=== PATIENT | female | born 1950 | race Two or more races ===

== ENCOUNTER 2020-09-03 07:12 | Outpatient (REF) | payer MEDICARE, SELFPAY ==
[2020-09-03 08:50] LABS: Alanine Aminotransferase 29 U/L (0-31); Albumin Level 4.2 g/dL (3.5-5.0); Alkaline Phosphatase 94 U/L (39-117); Anion Gap 12 (12-20); Aspartate Amino Transferase 22 U/L (5-31); Bilirubin Total 0.7 mg/dL (0.0-1.0); Blood Urea Nitrogen 12 mg/dL (9-16); Calcium 9.1 mg/dL (8.4-10.2); Carbon Dioxide 27 mmol/L (22-29); Chloride 105 mmol/L (96-108); Cholesterol 162 mg/dL; Estimated Glomerular Filt Rate > 60; Glucose Fasting 95 mg/dL (60-99); HDL Cholesterol 47 mg/dL; LDL Cholesterol Calculated 99 mg/dl; Potassium 4.3 mmol/l (3.3-5.1); Sodium 140 mmol/L (135-145); Triglycerides 81 mg/dL
== END 2020-09-03 07:13 | disposition home or self-care (01) ==
LOC: HO.LAB 07:12
PROVIDERS: PCP Internal Medicine; Visit Provider Internal Medicine
DX: E78.00 Pure hypercholesterolemia, unspecified (principal)
CPT/HCPCS: 80053; 80061

== ENCOUNTER 2020-10-22 16:31 | Outpatient (REF) | payer MEDICARE, SELFPAY ==
--- NOTE | 2020-10-22 16:36 | MM_ITS ---
EXAMINATION: MM SCREENING DIGITAL BREAST TOMOSYNTHESIS, BILATERAL CLINICAL INFORMATION: Screening. Asymptomatic. The lifetime risk of breast cancer based on the Tyrer-Cuzick Model is 4%. COMPARISON: Mammography: 08/09/2019, 07/27/2018, 07/05/2017 TECHNIQUE: Digital breast tomosynthesis is performed in both the craniocaudal and mediolateral oblique views along with computer-aided detection (CAD). Synthesized 2D images are generated from the tomosynthesis. FINDINGS: The breasts are almost entirely fatty (ACR BI-RADS breast composition Category a). Background stromal densities are stable. There is no developing density or interval mass or architectural abnormality. The axilla and skin contours are unremarkable. No significant changes. MM/MM tomosynthesis screening BI IMPRESSION: No mammographic evidence of malignancy. ASSESSMENT: BI-RADS 1: Negative RECOMMENDATION: Routine annual mammography screening. This patient's information was entered into a reminder system with a target due date for their next mammogram.
== END 2020-10-22 16:32 | disposition home or self-care (01) ==
LOC: HO.MAMMO 16:31
PROVIDERS: PCP Internal Medicine; Visit Provider Internal Medicine
DX: Z12.31 Encounter for screening mammogram for malignant neoplasm of breast (principal)
CPT/HCPCS: 77063; 77067

== ENCOUNTER 2021-09-11 11:39 | Outpatient (REF) | payer MEDICARE, SELFPAY ==
[2021-09-11 13:54] LABS: Influenza A PCR NEGATIVE (Negative); Influenza B PCR NEGATIVE (Negative); Resp Syncy Virus RNA Qual PCR NEGATIVE (Negative); SARS COV2 PCR INHOUSE NEGATIVE (Negative)
== END 2021-09-11 11:40 | disposition home or self-care (01) ==
LOC: HO.LNP 11:39
PROVIDERS: Visit Provider Internal Medicine
DX: Z20.822 Contact with and (suspected) exposure to COVID-19 (principal); R43.9 Unspecified disturbances of smell and taste
CPT/HCPCS: 0241U

== ENCOUNTER 2021-11-02 08:26 | Outpatient (REF) | payer MEDICARE, SELFPAY ==
[2021-11-02 09:45] LABS: Binax Internal Control QC Valid; Binax Now Covid-19 Ag Negative (Negative)
== END 2021-11-02 08:27 | disposition home or self-care (01) ==
LOC: HO.LAB 08:26
PROVIDERS: Visit Provider Internal Medicine
DX: Z20.822 Contact with and (suspected) exposure to COVID-19 (principal)
CPT/HCPCS: C9803

== ENCOUNTER 2021-11-20 10:56 | Outpatient (REF) | payer MEDICARE, SELFPAY ==
--- NOTE | ~2021-11-20 | MM_ITS ---
EXAMINATION: MM SCREENING DIGITAL BREAST TOMOSYNTHESIS, BILATERAL CLINICAL INFORMATION: Screening. Asymptomatic. The lifetime risk of breast cancer based on the Tyrer-Cuzick Model is 4%. COMPARISON: Mammography: 10/22/2020, 08/09/2019, 07/27/2018 TECHNIQUE: Digital breast tomosynthesis is performed in both the craniocaudal and mediolateral oblique views along with computer-aided detection (CAD). Synthesized 2D images are generated from the tomosynthesis. FINDINGS: The breasts are almost entirely fatty (ACR BI-RADS breast composition Category a). There are no significant masses, abnormal calcifications, or other abnormalities. Background stromal markings are similar to prior studies. No developing density or interval architectural abnormality. No significant changes. MM/MM tomosynthesis screening BI IMPRESSION: No mammographic evidence of malignancy. ASSESSMENT: BI-RADS 1: Negative RECOMMENDATION: Routine annual mammography screening. This patient's information was entered into a reminder system with a target due date for their next mammogram.
== END 2021-11-20 10:57 | disposition home or self-care (01) ==
LOC: HO.MAMMO 10:56
PROVIDERS: PCP Internal Medicine; Visit Provider Internal Medicine
DX: Z12.31 Encounter for screening mammogram for malignant neoplasm of breast (principal)
CPT/HCPCS: 77063; 77067

== ENCOUNTER 2022-01-29 09:35 | Outpatient (REF) | payer MEDICARE, SELFPAY ==
[2022-01-29 10:10] LABS: COVID-19 Test Negative (Negative); IDNOW Serial# 08D9AD1C
== END 2022-01-29 09:36 | disposition home or self-care (01) ==
LOC: HO.LAB 09:35
PROVIDERS: Visit Provider Internal Medicine
DX: Z20.822 Contact with and (suspected) exposure to COVID-19 (principal)
CPT/HCPCS: 87635; C9803

== ENCOUNTER 2022-11-24 12:41 | Outpatient (REF) | payer MEDICARE, SELFPAY ==
--- NOTE | ~2022-11-24 | XR_ITS ---
EXAMINATION: XR KNEE, LEFT CLINICAL INFORMATION: Pain in left knee. COMPARISON: None TECHNIQUE: Three views of the left knee. FINDINGS: Bones and soft tissues are normal. No fracture or joint effusion. Alignment is anatomic. Joint spaces are well maintained. No abnormal soft tissue calcification. XR/XR knee LT 3V IMPRESSION: Normal left knee.
== END 2022-11-24 12:42 | disposition home or self-care (01) ==
LOC: HO.XRAY 12:41
PROVIDERS: PCP Internal Medicine; Visit Provider Internal Medicine
DX: M25.562 Pain in left knee (principal)
CPT/HCPCS: 73562

== ENCOUNTER 2022-11-26 10:26 | Outpatient (REF) | payer MEDICARE, SELFPAY ==
--- NOTE | ~2022-11-26 | MM_ITS ---
EXAMINATION: MM SCREENING DIGITAL BREAST TOMOSYNTHESIS, BILATERAL CLINICAL INFORMATION: Screening. Asymptomatic. The lifetime risk of breast cancer based on the Tyrer-Cuzick Model is 3%. COMPARISON: Mammography: 11/20/2021, 10/22/2020, 08/09/2019 TECHNIQUE: Digital breast tomosynthesis is performed in both the craniocaudal and mediolateral oblique views along with computer-aided detection (CAD). Synthesized 2D images are generated from the tomosynthesis. FINDINGS: The breasts are almost entirely fatty (ACR BI-RADS breast composition Category a). Background stromal markings and fibroglandular densities are similar to prior studies. No developing density. No architectural abnormality. There are no significant masses, abnormal calcifications, or other abnormalities. There are scattered vascular calcifications. The axilla and skin contours are unremarkable. MM/MM tomosynthesis screening BI IMPRESSION: No mammographic evidence of malignancy. ASSESSMENT: BI-RADS 1: Negative RECOMMENDATION: Routine annual mammography screening. This patient's information was entered into a reminder system with a target due date for their next mammogram.
== END 2022-11-26 10:27 | disposition home or self-care (01) ==
LOC: HO.MAMMO 10:26
PROVIDERS: PCP Internal Medicine; Visit Provider Internal Medicine
DX: Z12.31 Encounter for screening mammogram for malignant neoplasm of breast (principal)
CPT/HCPCS: 77063; 77067

== ENCOUNTER 2023-03-10 06:11 | Outpatient (REF) | payer MEDICARE, SELFPAY ==
--- NOTE | ~2023-03-10 | XR_ITS ---
EXAMINATION: XR KNEE AP STANDING CLINICAL INFORMATION: Right knee pain COMPARISON: None available. TECHNIQUE: AP bilateral standing view of the knees was obtained. FINDINGS: Bones and soft tissues are normal. No fracture or joint effusion. Alignment is anatomic. Joint spaces are well maintained. No abnormal soft tissue calcification. XR/XR knee standing BI IMPRESSION: Normal knees.
== END 2023-03-10 06:12 | disposition home or self-care (01) ==
LOC: HO.HOSX 06:11
PROVIDERS: Visit Provider Physician Assistant
DX: M17.12 Unilateral primary osteoarthritis, left knee (principal); M25.561 Pain in right knee
CPT/HCPCS: 73565; 99202

== ENCOUNTER 2023-05-24 12:03 | Outpatient (AMB) | payer MEDICARE, SELFPAY ==
--- NOTE | 2023-05-24 13:14 | AM.OFFWIN_ITS ---
Intake Vital Signs 05/24/23 13:18 Weight 151 lb BP 112/66 Blood Pressure Location Lt brachial Position Sitting Pulse 66 Pulse Source Pulse Oximeter Pulse Oximetry (%) 96 Oxygen Delivery Method Room Air Intake Visit Reasons: EP, watery left eye ([phone]) Intake Note: Patient here for left eye watery, she states this has been going on for about 6 months. states the eye is constanstly tearing. Patient Tobacco Use Status: Never used Tobacco Allergies No Known Allergies Allergy (Verified 05/24/23 13:53) Medication List - Last Reconciled 05/24/23 by Ketan Rolle MD erythromycin 0.5 inches ophthalmic (eye) TID Do you need a note to return to daycare/school/sports/work: No HPI EP, watery left eye ([phone]) HPI Details 72-year-old female presents to the office for a sick visit. is translating for her. Patient reports that she has a teary left eye for the past few days. She has difficulty opening the eye and this morning there was some discharge. [facility] Medical History Pure hypercholesterolemia Surgical History History of hysterectomy Family History Father Diabetes Mother Alzheimers disease Maternal Aunt Breast cancer Brother Liver cancer Social History (Updated 03/10/23 @ 10:07 by Jossie Conner Ethan) Housing: Apartment Alcohol intake: never Patient Tobacco Use Status: Never used Tobacco e-Cigarette/Vaping Use: Never Used Second Hand Smoke Exposure: No service: No Current occupational status: unemployed Current occupation: left hand Cognitive needs: No Hearing needs: No Vision needs: No Physical Exam Vital Signs: Last Vital Signs Pulse 66 05/24/23 13:18 BP 112/66 05/24/23 13:18 Pulse Ox 96 05/24/23 13:18 Oxygen Delivery Method Room Air 05/24/23 13:18 HEENT Other: Left eye: Mild conjunctival congestion. Corneas clear. Anterior chambers clear. No digital tenderness. Assessment & Plan Assessment & Plan (1) Conjunctivitis, left eye: Code(s): H10.9 - Unspecified conjunctivitis Plan: Erythromycin ointment called in.. If symptoms do not improve to follow-up here. Medications: New erythromycin 0.5 inches ophthalmic (eye) TID 1 g 0RF Coding Level of Care Code Est Pt Level 3 (03239) Diagnoses Conjunctivitis, left eye H10.9
[2023-05-24 13:18] VITALS: BP 112/66; PULSE 66; O2SAT 96
== END 2023-05-24 14:09 | disposition home or self-care (01) ==
PROVIDERS: PCP Internal Medicine; Visit Provider Internal Medicine
DX: H10.9 Unspecified conjunctivitis (principal)
CPT/HCPCS: 99213

== ENCOUNTER 2023-12-02 10:04 | Outpatient (REF) | payer OTHER, SELFPAY | END 2023-12-02 10:05 | disposition home or self-care (01) | LOC: HO.MAMMO 10:04 | PROVIDERS: PCP Internal Medicine; Visit Provider Internal Medicine | DX: Z12.31 Encounter for screening mammogram for malignant neoplasm of breast (principal) | CPT/HCPCS: 77063; 77067 ==

== ENCOUNTER → 2023-12-02 10:30 | Outpatient (BNV) | payer OTHER, SELFPAY | PROVIDERS: PCP Internal Medicine; Visit Provider Radiology Diagnostic Radiology | DX: Z12.31 Encounter for screening mammogram for malignant neoplasm of breast (principal) | CPT/HCPCS: 77063; 77067 ==

== ENCOUNTER 2024-01-18 07:50 | Outpatient (REF) | payer OTHER, SELFPAY ==
[2024-01-18 10:02] LABS: Alanine Aminotransferase 16 U/L (0-31); Alkaline Phosphatase 61 U/L (39-117); Anion Gap 11 (12-20); Aspartate Amino Transferase 18 U/L (5-31); Bilirubin Total 0.5 mg/dL (0.0-1.0); Blood Urea Nitrogen 11 mg/dL (9-16); Calcium 9.7 mg/dL (8.4-10.2); Carbon Dioxide 27 mmol/L (22-29); Chloride 108 mmol/L (96-108); Cholesterol 223 mg/dL (<200); Estimated Glomerular Filt Rate > 60; Glucose Fasting 97 mg/dL (60-99); HDL Cholesterol 48 mg/dL (>40); LDL Cholesterol Calculated 153 mg/dL (<100); Potassium 4.4 mmol/L (3.3-5.1); Sodium 142 mmol/L (135-145); Total Protein 7.2 g/dL (6.5-8.0); Triglycerides 110 mg/dL (<150)
== END 2024-01-18 07:51 | disposition home or self-care (01) ==
LOC: HO.LAB 07:50
PROVIDERS: Visit Provider Internal Medicine
DX: M17.12 Unilateral primary osteoarthritis, left knee (principal); E78.5 Hyperlipidemia, unspecified
CPT/HCPCS: 36415; 80053; 80061

== ENCOUNTER 2024-02-02 16:14 | Outpatient (AMB) | payer OTHER, SELFPAY ==
--- NOTE | 2024-02-02 16:15 | A.OFFPC_ITS ---
Vital Signs 02/02/24 16:16 Height 5 ft 1 in Weight 150 lb BMI 28.3 BP 114/72 Blood Pressure Location Lt brachial Position Sitting Intake Visit Reasons: watery/blurry left eye Intake Note: patient here for left eye blurry vision, watery eye Bodywork Therapist Required: No Accompanied by: Self / Same As Patient Allergies No Known Allergies Allergy (Verified 02/02/24 16:44) Medication List - Last Reconciled 02/02/24 by Marti Hernandez MD rosuvastatin 10 mg PO DAILY 90 days Tobacco use date assessed: 02/02/24 Fall risk assessment: No Falls in past year Last assessed Fall Risk: 02/02/24 Dental Screening Dental Screen Date: 02/02/24 Did you have a dental visit in the last 12 months?: No Did you have a dental problem in the last 6 months where you did not have access to dental care?: No Was dental information given to patient?: Patient declined HPI HPI Comments History of Present Illness Details This is a 73-year-old female with pure hypercholesterolemia that comes complaining of left eye being red and watery that started few days ago. She also has a pterygium that is growing and I will refer her to Ophthalmology. Cholesterol was elevated and she admits that she started being compliant with me dication this month. [facility] Medical History (Updated 02/03/24 @ 14:42 by Marti Hernandez MD) Pure hypercholesterolemia Surgical History History of hysterectomy Family History Father Diabetes Mother Alzheimers disease Maternal Aunt Breast cancer Brother Liver cancer Social History Housing: Apartment Alcohol intake: never Patient Tobacco Use Status: Never used Tobacco e-Cigarette/Vaping Use: Never Used Second Hand Smoke Exposure: No service: No Current occupational status: unemployed Current occupation: left hand Cognitive needs: No Hearing needs: No Vision needs: No Questionnaire PHQ-9 Over the last 2 weeks, how often have you been bothered by any of the following problems? 1. Little interest or pleasure in doing things: not at all 2. Feeling down, depressed, or hopeless: not at all 3. Trouble falling or staying asleep, or sleeping too much: not at all 4. Feeling tired or having little energy: not at all 5. Poor appetite or overeating: not at all 6. Feeling bad about yourself - or that you are a failure or have let yourself or your family down: not at all 7. Trouble concentrating on things, such as reading the newspaper or watching television: not at all 8. Moving or speaking so slowly that other people could have noticed. Or the opposite - being so fidgety or restless that you have been moving around a lot more than usual: not at all 9. Thoughts that you would be better off or of hurting yourself in some way: not at all Total score: 0 Depression Screening Interpretation: Negative Depression Screening Done: Yes 27907 - PHQ-9 Billing: Yes Source: Developed by Drs. Brice Thakkar, Jayshree Manuel, Hema Greenberg and colleagues, with an educational dexter from [employer]. Thrive Questionnaire Date Thrive assessed: 02/02/24 I am a: Patient What is your living situation today?: I have a steady place to live Within the past 12 months, did the food you bought not last and you didn't have the money to get more?: Never true Within the past 12 months, did you worry whether your food would run out before you got money to buy more?: Never true Do you have trouble paying for medicines?: No Do you have trouble getting transportation to medical appointments?: No Do you have trouble paying your heating and electricity bill?: No Do you have trouble taking care of your child, family member or friend?: No Do you have trouble with day-to-day activities such as bathing, preparing meals, shopping, managing finances, etc.?: No Are you currently unemployed and looking for a job?: No Are you interested in more education?: No Please select the resources that you would like help with: None Currently or been in a relationship where the following occur: no concerns reported THRIVE Score: 0 AUDIT C Alcohol Use Questionnaire (AUDIT-C) 1. How often do you have a drink containing alcohol?: Never Total Score: 0 EVERETTE-7 AMB Questionnaire EVERETTE-7 Date EVERETTE - 7 assessed: 02/02/24 Feeling nervous, anxious, or on edge: 0 = Not at all Not being able to stop or control worryin = Not at all Worrying too much about different things: 0 = Not at all Trouble relaxin = Not at all Being so restless that it is hard to sit still: 0 = Not at all Becoming easily annoyed or irritable: 0 = Not at all Feeling afraid as if something awful might happen: 0 = Not at all Total EVERETTE-7 score (0-4 normal; 5-9 mild; 10-14 moderate; 15-21 severe): 0 Source: Developed by Drs. Brice Thakkar, Jayshree Manuel, Hema Greenberg and colleagues, with an educational dexter from [employer]. EVERETTE-7 Assessment Billing EVERETTE-7 Assessment Tool: EVERETTE-7 Assessment 87344 Review of Systems Const All systems reviewed & are unremarkable except as noted in HPI and below Eyes Reports no additional complaints, Denies change in vision, Reports eye discharge, Reports itchy eyes and Denies other visual disturbances Card Denies chest pain at rest, Denies chest pain with activity, Denies edema, Denies irregular heart rhythm, Denies claudication, Denies dyspnea, Denies dyspnea on exertion, Denies orthopnea, Denies paroxysmal nocturnal dyspnea and Denies slow heart rate Resp Denies cough, Denies dyspnea and Denies dyspnea on exertion GI Denies abdominal pain, Denies change in bowel habits, Denies excessive flatus, Denies nausea and Denies vomiting Denies urinary incontinence, Denies urinary hesitancy and Denies urinary urgency Aller/Immun Reports itchy eyes Physical exam (Primary Care) Vital Signs: Last Vital Signs BP 114/72 02/02/24 16:16 BMI result Body Mass Index 28.3 Tobacco/Smoking Status: Tobacco use Status Tobacco use date assessed 02/02/24 02/02/24 16:22 Patient Tobacco Use Status Never used Tobacco 02/02/24 16:22 e-Cigarette/Vaping Use Never Used 02/02/24 16:22 PHQ-9: PHQ-9 Score PHQ-9: Total score 0 02/02/24 16:47 Depression Screening Interpretation: Negative Thrive Assessment: Date of Thrive Assessment Date Thrive assessed 02/02/24 02/02/24 16:22 Currently or been in a relationship where the following occur: no concerns reported Eyes Other: Left pterygium Conjunctivae: conjunctival abnormal left conjunctival injection and pterygium Resp Effort & Inspection: normal respiratory effort Auscultation: clear to auscultation bilaterally Cardio Jugular venous distension: no JVD Rate: regular rate Rhythm: regular rhythm Heart sounds: S1 normal heart sound present and S2 normal heart sound present Extrem General: Yes full ROM Assessment and Plan Assessment & Plan (1) Allergic conjunctivitis: Code(s): H10.10 - Acute atopic conjunctivitis, unspecified eye Plan: Start Pataday as needed. Referred to Ophthalmology. (2) Pure hypercholesterolemia: Code(s): E78.00 - Pure hypercholesterolemia, unspecified Plan: Continue statins. Orders: Referrals Ophthalmology Referral H11.009 - Unspecified pterygium of unspecified eye Medications: New olopatadine 0.2% (Pataday Once Daily Relief) 1 drp ophthalmic (eye) DAILY PRN 2.5 mL 1RF itching 30 days Coding Level of Care Code Est Pt Level 3 (68234) Diagnoses Allergic conjunctivitis H10.10 Pure hypercholesterolemia E78.00 Additional Codes EVERETTE-7 Assessment Billing - EVERETTE-7 Assessment Tool: EVERETTE-7 Assessment 18479 ([id number]) Time Spent (min) 19
[2024-02-02 16:16] VITALS: BP 114/72; BMI 28.3
== END 2024-02-02 16:50 | disposition home or self-care (01) ==
PROVIDERS: PCP Internal Medicine; Visit Provider Internal Medicine
DX: H10.10 Acute atopic conjunctivitis, unspecified eye (principal); E78.00 Pure hypercholesterolemia, unspecified
CPT/HCPCS: 99213

== ENCOUNTER 2024-04-18 17:01 | Outpatient (AMB) | payer MEDICARE, SELFPAY ==
--- NOTE | 2024-04-18 17:03 | A.OFFPC_ITS ---
Vital Signs 04/18/24 17:12 Height 5 ft 1 in Weight 149 lb 6 oz BMI 28.2 BP 106/64 Blood Pressure Location Lt brachial Position Sitting Pulse 67 Pulse Source Pulse Oximeter Pulse Oximetry (%) 95 Oxygen Delivery Method Room Air Intake Visit Reasons: Annual PE Director Of Donor Relations Required: No Accompanied by: Self / Same As Patient Allergies No Known Allergies Allergy (Verified 04/18/24 17:35) Medication List - Last Reconciled 04/18/24 by Marti Hernandez MD olopatadine 0.2% (Pataday Once Daily Relief) 1 drp ophthalmic (eye) DAILY PRN 30 days rosuvastatin 10 mg PO DAILY 90 days Tobacco use date assessed: 02/02/24 Fall risk assessment: No Falls in past year Last assessed Fall Risk: 04/18/24 Dental Screening Dental Screen Date: 02/02/24 HPI HPI Comments History of Present Illness Details This is a 73-year-old female that comes for her physical exam. Mammogram done 2023 was normal. Colonoscopy done 2010 and she was refer through open access but has never received a call. I will refer her to Dr. Adan again. No need for Pap smear due to age. No acute complaints. [facility] Medical History (Updated 04/18/24 @ 17:41 by Marti Hernandez MD) Pure hypercholesterolemia Surgical History History of hysterectomy Family History Father Diabetes Mother Alzheimers disease Maternal Aunt Breast cancer Brother Liver cancer Social History Housing: Apartment Alcohol intake: never Patient Tobacco Use Status: Never used Tobacco e-Cigarette/Vaping Use: Never Used Second Hand Smoke Exposure: No service: No Current occupational status: unemployed Current occupation: left hand Cognitive needs: No Hearing needs: No Vision needs: No Questionnaire Thrive Questionnaire Date Thrive assessed: 02/02/24 EVERETTE-7 AMB Questionnaire EVERETTE-7 Date EVERETTE - 7 assessed: 02/02/24 Source: Developed by Drs. Brice Thakkar, Jayshree Manuel, Hema Greenberg and colleagues, with an educational dexter from [employer]. Review of Systems Const All systems reviewed & are unremarkable except as noted in HPI and below Card Denies chest pain at rest, Denies chest pain with activity, Denies edema, Denies irregular heart rhythm, Denies claudication, Denies dyspnea, Denies dyspnea on exertion, Denies orthopnea, Denies paroxysmal nocturnal dyspnea and Denies slow heart rate Resp Denies cough, Denies dyspnea and Denies dyspnea on exertion GI Denies abdominal pain, Denies change in bowel habits, Denies excessive flatus, Denies nausea and Denies vomiting Denies urinary incontinence, Denies urinary hesitancy and Denies urinary urgency Neuro Denies lack of coordination Physical exam (Primary Care) Vital Signs: Last Vital Signs Pulse 67 04/18/24 17:12 BP 106/64 04/18/24 17:12 Pulse Ox 95 04/18/24 17:12 Oxygen Delivery Method Room Air 04/18/24 17:12 BMI result Body Mass Index 28.2 Tobacco/Smoking Status: Tobacco use Status Tobacco use date assessed 02/02/24 04/18/24 17:05 Patient Tobacco Use Status Never used Tobacco 04/18/24 17:05 e-Cigarette/Vaping Use Never Used 04/18/24 17:05 Thrive Assessment: Date of Thrive Assessment Date Thrive assessed 02/02/24 04/18/24 17:05 HENGA Head: Yes normal to inspection, Yes normocephalic and Yes atraumatic Ears: external ears normal Eyes General: appearance normal, both eyes and all related structures Eyelids: Yes eyelids normal Conjunctivae: conjunctivae normal Neck Neck: Yes normal visual inspection and Yes supple Resp Effort & Inspection: normal respiratory effort Auscultation: clear to auscultation bilaterally Cardio Jugular venous distension: no JVD Rate: regular rate Rhythm: regular rhythm Heart sounds: S1 normal heart sound present and S2 normal heart sound present GI Inspection: Yes normal to inspection Palpation (GI): Soft to palpation and nontender Auscultation: normal bowel sounds Skin General skin exam: no rashes or lesions noted Neuro General: no focal motor deficits Extrem General: Yes full ROM Psych Appearance: grossly normal Assessment and Plan Assessment & Plan (1) Physical exam: Code(s): Z00.00 - Encounter for general adult medical examination without abnormal findings Plan: Repeat in a year. Orders: Orders Lipid Panel 6 Months E78.5 - Hyperlipidemia, unspecified Comprehensive [place]. Panel Fast 6 Months Z00.00 - Encounter for general adult medical examination without abnormal findings Referrals Gastroenterology Referral Z12.11 - Encounter for screening for malignant neoplasm of colon Coding Level of Care Code Est Pt Prev Care >65y(59091) Diagnoses Physical exam Z00.00 Time Spent (min) 30
[2024-04-18 17:12] VITALS: BP 106/64; PULSE 67; O2SAT 95; BMI 28.2
== END 2024-04-18 17:40 | disposition home or self-care (01) ==
PROVIDERS: PCP Internal Medicine; Visit Provider Internal Medicine
DX: Z00.00 Encounter for general adult medical examination without abnormal findings (principal)
CPT/HCPCS: 99397

== ENCOUNTER 2024-04-24 08:34 | Outpatient (AMB) | payer OTHER, SELFPAY ==
[2024-04-24 08:54] VITALS: BP 132/80; PULSE 61; TEMP 36.6; O2SAT 92; BMI 28.1
--- NOTE | 2024-04-24 08:54 | AM.OFFWIN_ITS ---
Intake Vital Signs 04/24/24 08:54 Height 5 ft 1 in Weight 148 lb 8 oz BMI 28.1 BP 132/80 Blood Pressure Location Lt brachial Position Sitting Pulse 61 Pulse Source Pulse Oximeter Temp 98 F Temp Source Oral Pulse Oximetry (%) 92 Oxygen Delivery Method Room Air Intake Visit Reasons: EP body rash Patient Tobacco Use Status: Never used Tobacco Allergies No Known Allergies Allergy (Verified 04/24/24 08:55) Medication List - Last Reconciled 04/24/24 by Viktoriya Klein MD olopatadine 0.2% (Pataday Once Daily Relief) 1 drp ophthalmic (eye) DAILY PRN 30 days rosuvastatin 10 mg PO DAILY 90 days Do you need a note to return to daycare/school/sports/work: No HPI EP body rash HPI Details 73-year-old female who was working [employer] in the [employer] 2 days ago After that patient developed rash on both her forearm which is extremely pruriti c A new rash is appearing on her right side of upper chest and right belly area Which is also pruritic Review system is negative for any fever chills, swelling of lips, difficulty swallowing or breathing No nausea vomiting or diarrhea. Patient has developed contact dermatitis I am treating her with hydroxyzine 25 mg to be taken at night for itching Medrol Dosepak. Follow up with primary care [facility] Medical History Pure hypercholesterolemia Surgical History History of hysterectomy Family History Father Diabetes Mother Alzheimers disease Maternal Aunt Breast cancer Brother Liver cancer Social History Housing: Apartment Alcohol intake: never Patient Tobacco Use Status: Never used Tobacco e-Cigarette/Vaping Use: Never Used Second Hand Smoke Exposure: No service: No Current occupational status: unemployed Current occupation: left hand Cognitive needs: No Hearing needs: No Vision needs: No Review of Systems Const All systems reviewed & are unremarkable except as noted in HPI and below Physical Exam Vital Signs: Last Vital Signs Temp 98 F 04/24/24 08:54 Pulse 61 04/24/24 08:54 BP 132/80 04/24/24 08:54 Pulse Ox 92 04/24/24 08:54 Oxygen Delivery Method Room Air 04/24/24 08:54 BMI result Body Mass Index 28.1 Const General: no acute distress Orientation/consciousness: patient oriented x3 Eyes General: appearance normal, both eyes and all related structures Resp Effort & Inspection: normal respiratory effort and able to speak in complete sentences Auscultation: clear to auscultation bilaterally Skin Other: Erythematous rash both arms with scratch treviño, with few vesicles Erythematous rash appearing right upper chest and right abdomen Neuro General: patient oriented x3 Psych Mental Status: mental status grossly normal Assessment & Plan Assessment & Plan (1) Contact dermatitis due to plant: Code(s): L25.5 - Unspecified contact dermatitis due to plants, except food Plan 73-year-old female who was working outside in the [employer] 2 days ago After that patient developed rash on both her forearm which is extremely pruritic A new rash is appearing on her right side of upper chest and right belly area Which is also pruritic Review system is negative for any fever chills, swelling of lips, difficulty swallowing or breathing No nausea vomiting or diarrhea. Patient has developed contact dermatitis I am treating her with hydroxyzine 25 mg to be taken at night for itching Medrol Dosepak. Follow up with primary care Medications: New hydroxyzine HCl Medication will make you drowsy, no driving while taking this medication or working with machines 25 mg PO BEDTIME 10 tabs 0RF Itching methylprednisolone (Medrol (Damian)) PO PER PKG DIR 21 ea 0RF 6 days Coding Level of Care Code Est Pt Level 3 (63532) Diagnoses Contact dermatitis due to plant L25.5
== END 2024-04-24 09:05 | disposition home or self-care (01) ==
PROVIDERS: PCP Internal Medicine; Visit Provider Internal Medicine
DX: L25.5 Unspecified contact dermatitis due to plants, except food (principal)
CPT/HCPCS: 99213

== ENCOUNTER 2024-10-12 16:36 | Outpatient (AMB) | payer OTHER, SELFPAY ==
--- NOTE | 2024-10-12 16:39 | A.OFFPC_ITS ---
Vital Signs 10/12/24 16:40 Height 5 ft 1 in Weight 149 lb 2 oz BMI 28.2 BP 110/62 Blood Pressure Location Lt brachial Position Sitting Pulse 67 Pulse Source Pulse Oximeter Pulse Oximetry (%) 97 Oxygen Delivery Method Room Air Intake Visit Reasons: 6 month Turf Sales Person Required: No Accompanied by: Self / Same As Patient Allergies No Known Allergies Allergy (Verified 10/12/24 16:55) Medication List - Last Reconciled 10/12/24 by Marti Hernandez MD hydroxyzine HCl 25 mg PO BEDTIME rosuvastatin 10 mg PO DAILY 90 days Tobacco use date assessed: 10/12/24 Fall risk assessment: No Falls in past year Last assessed Fall Risk: 10/12/24 Dental Screening Dental Screen Date: 10/12/24 Did you have a dental visit in the last 12 months?: Yes Did you have a dental problem in the last 6 months where you did not have access to dental care?: No Was dental information given to patient?: Patient has dentist HPI HPI Comments History of Present Illness Details The patient is a 73-year-old female presenting with hyperlipidemia and excessive tearing. The hyperlipidemia is managed with rosuvastatin 10 mg daily, with a plan for regular monitoring of cholesterol levels. There is no indication of any recent or notable change in her lipid profile as discussed. The patient reports she is feeling well overall, with no recent or past complications from her lipid profile or medications. The excessive tearing is a newer concern, with persistent symptoms that have not resolved. The patient plans to travel and return in December, with laboratory work anticipated for her upcoming visit in April. She does not currently recall all prescribed treatments for tearing but mentioned a potential [id number]-wanwtw cost for a specific remedy. [facility] Medical History Pure hypercholesterolemia Surgical History History of hysterectomy Family History Father Diabetes Mother Alzheimers disease Maternal Aunt Breast cancer Brother Liver cancer Social History Housing: Apartment Alcohol intake: never Patient Tobacco Use Status: Never used Tobacco e-Cigarette/Vaping Use: Never Used Second Hand Smoke Exposure: No service: No Current occupational status: unemployed Current occupation: left hand Cognitive needs: No Hearing needs: No Vision needs: No Questionnaire PHQ-9 Over the last 2 weeks, how often have you been bothered by any of the following problems? 1. Little interest or pleasure in doing things: not at all 2. Feeling down, depressed, or hopeless: not at all 3. Trouble falling or staying asleep, or sleeping too much: not at all 4. Feeling tired or having little energy: not at all 5. Poor appetite or overeating: not at all 6. Feeling bad about yourself - or that you are a failure or have let yourself or your family down: not at all 7. Trouble concentrating on things, such as reading the newspaper or watching television: not at all 8. Moving or speaking so slowly that other people could have noticed. Or the opposite - being so fidgety or restless that you have been moving around a lot more than usual: not at all 9. Thoughts that you would be better off or of hurting yourself in some wa y: not at all Total score: 0 Depression Screening Interpretation: Negative Depression Screening Done: Yes 24537 - PHQ-9 Billing: Yes Source: Developed by Drs. Brice Thakkar, Jayshree Manuel, Hema Greenberg and colleagues, with an educational dexter from [employer]. Thrive Questionnaire Date Thrive assessed: 10/12/24 I am a: Patient What is your living situation today?: I have a steady place to live Within the past 12 months, did the food you bought not last and you didn't have the money to get more?: Never true Within the past 12 months, did you worry whether your food would run out before you got money to buy more?: Never true Do you have trouble paying for medicines?: No Do you have trouble getting transportation to medical appointments?: No Do you have trouble paying your heating and electricity bill?: No Do you have trouble taking care of your child, family member or friend?: No Do you have trouble with day-to-day activities such as bathing, preparing meals, shopping, managing finances, etc.?: No Are you currently unemployed and looking for a job?: No Are you interested in more education?: No Please select the resources that you would like help with: None Currently or been in a relationship where the following occur: No concerns reported THRIVE Score: 0 AUDIT C Alcohol Use Questionnaire (AUDIT-C) 1. How often do you have a drink containing alcohol?: Never 3. How often do you have six or more drinks on one occasion?: Never Total Score: 0 Score Reviewed/Action Taken: No EVERETTE-7 AMB Questionnaire EVERETTE-7 Date EVERETTE - 7 assessed: 10/12/24 Feeling nervous, anxious, or on edge: 0 = Not at all Not being able to stop or control worryin = Not at all Worrying too much about different things: 0 = Not at all Trouble relaxin = Not at all Being so restless that it is hard to sit still: 0 = Not at all Becoming easily annoyed or irritable: 0 = Not at all Feeling afraid as if something awful might happen: 0 = Not at all Total EVERETTE-7 score (0-4 normal; 5-9 mild; 10-14 moderate; 15-21 severe): 0 Source: Developed by Drs. Brice Thakkar, Jayshree Manuel, Hema Greenberg and colleagues, with an educational dexter from [employer]. EVERETTE-7 Assessment Billing EVERETTE-7 Assessment Tool: EVERETTE-7 Assessment 24555 Review of Systems Const Details: - Eyes: Reports excessive tearing. - Cardiovascular: Denies chest pain. - Respiratory: Denies shortness of breath. - General: Denies fever. - Genitourinary: Denies issues with urination. - Gastrointestinal: Denies issues with bowel movements. - Neurological: Denies dizziness or other symptoms. Physical exam (Primary Care) Vital Signs: Last Vital Signs Pulse 67 10/12/24 16:40 BP 110/62 10/12/24 16:40 Pulse Ox 97 10/12/24 16:40 Oxygen Delivery Method Room Air 10/12/24 16:40 BMI result Body Mass Index 28.2 Tobacco/Smoking Status: Tobacco use Status Tobacco use date assessed 10/12/24 10/12/24 16:45 Patient Tobacco Use Status Never used Tobacco 10/12/24 16:45 e-Cigarette/Vaping Use Never Used 10/12/24 16:45 PHQ-9: PHQ-9 Score PHQ-9: Total score 0 10/12/24 16:58 Depression Screening Interpretation: Negative Thrive Assessment: Date of Thrive Assessment Date Thrive assessed 10/12/24 10/12/24 16:45 Currently or been in a relationship where the following occur: No concerns reported Const Other: General: No confusion Respiratory: Normal respiratory effort, clear to auscultation bilaterally Cardiovascular: No jugular venous distension, regular rate, regular rhythm, S1 normal heart sound present and S2 normal heart sound present Neurology: Patient oriented x3, no focal motor deficits and No confusion Extremities: Full ROM Psychology: Grossly normal Coding Level of Care Code Est Pt Level 3 (67568) Complex EM visit Add On G2211 Diagnoses Pure hypercholesterolemia E78.00 Eye tearing H04.209 Additional Codes EVERETTE-7 Assessment Billing - EVERETTE-7 Assessment Tool: EVERETTE-7 Assessment 14691 ([id number]) PHQ-9 - 01938 - PHQ-9 Billing: Yes ([id number]) Time Spent (min) 19 Assessment & Plan Assessment & Plan (1) Pure hypercholesterolemia: Code(s): E78.00 - Pure hypercholesterolemia, unspecified Category: Medical (2) Eye tearing: Code(s): H04.209 - Unspecified epiphora, unspecified side Category: Medical Plan - Continue current rosuvastatin regimen for hyperlipidemia. - Recommend obtaining laboratory tests for cholesterol, glucose, liver function, and potential additional tests prior to the next scheduled visit. - Suggest lakm-kqa-cytzeux options for managing excessive tearing if prescription treatments are not covered by the insurance plan. Patient was informed and verbally consented to the use of an ambient scribe for clinic note documentation during this visit. I discussed with the patient the importance of continued management of her cholesterol to prevent potential cardiovascular issues. We reviewed her current medications, including rosuvastatin, and confirmed no allergies or medication side effects. I advised that the excessive tearing could potentially be managed with a treatment that might not be covered by her insurance, and that this may be available fkke-oyq-vctwbpe for a cost. I encouraged obtaining the laboratory tests in advance of the next visit planned after her travel. We also talked about her return in December after visiting [place]. Orders: Orders Comprehensive [place]. Panel Fast 6 Months E78.00 - Pure hypercholesterolemia, unspecified Lipid Panel 6 Months E78.5 - Hyperlipidemia, unspecified Medications: New olopatadine 0.2% (Pataday Once Daily Relief) 1 drp ophthalmic (eye) DAILY PRN 2.5 mL 0RF itching 30 days Patient Instructions: - Continue taking rosuvastatin 10 mg daily as prescribed. - Consider avjm-smk-kctwyqd remedies for excessive tearing if prescription options are not covered. - Arrange for laboratory testing prior to your next visit after returning from [place]. - Report any notable changes or new symptoms promptly.
[2024-10-12 16:40] VITALS: BP 110/62; PULSE 67; O2SAT 97; BMI 28.2
--- OUTSIDE RECORDS SUMMARY | 2024-10-12 16:57 | XMS_ITS | Patient Health Record ---
Author Organization [facility] Address [address] [place] [address] Care Team Providers Care Pre Coder Name Role Phone Marti Velez Primary Care Provider UnavailEnrico Khan Jr Unavailable REASON FOR REFERRAL No Information SOCIAL HISTORY Sex Assigned At : Social History Observation Description Sex Assigned At Unknown PROBLEMS Problem Type ICD Code Onset Dates Problem Status W/U Status Risk SNOMED Code Notes Problem Special screening for malignant neoplasms, colon (V76.51) Active confirmed Screening for malignant neoplasm of colon (144503089) Encounters Encounter Location Date Provider Diagnosis [facility] [address] [place] [phone] 07/26/2024 Enrico Adan Jr [facility] [address] [place] [phone] 07/26/2024 Enrico Adan Jr [facility] [address] [place] [phone] 10/12/2024 Enrico Adan Jr PLAN OF TREATMENT Pending Test Test Name Order Date COLONOSCOPY WITH BIOPSY 07/21/2011 Next Appt Details Provider Name:Enrico vaz Jr, 12/17/2024 11:20:00 AM, [address], [address], [place], [address], Insurance Providers Payer Name Payer Address Payer Phone Subscriber Number Group Number Insured Name Patient Relationship to Insured Coverage Start Date Coverage End Date [facility] [address] [place] [address] [id number] DESMOND RAY Self - patient is the insured
--- OUTSIDE RECORDS SUMMARY | 2024-10-12 16:57 | XMS_ITS ---
Author Organization [facility] Address [address] [place] [address] Care Team Providers Care Fuel Conversion Technician Name Role Phone Marti Velez Primary Care Provider Unavailab Enrico Dejesus Jr Unavailable REASON FOR VISIT Pt no show Encounters Encounter Location Date Provider Diagnosis [facility] [address] [place] [address] 07/26/2024 Enrico Adan Jr PLAN OF TREATMENT Next Appt Details Provider Name:Enrico vaz Jr, 12/17/2024 11:20:00 AM, [address], [address], [place], [address],
--- OUTSIDE RECORDS SUMMARY | 2024-10-12 16:57 | XMS_ITS ---
Author Organization [facility] Address [address] [place] [address] Care Team Providers Care Vault Keeper Name Role Phone Marti Velez Primary Care Provider Unavailab Enrico Dejesus Jr Unavailable REASON FOR VISIT Patient presents today for a COLON SCREENING Encounters Encounter Location Date Provider Diagnosis [facility] [address] [place] [address] 07/26/2024 Enrioc Adan Jr PLAN OF TREATMENT Next Appt Details Provider Name:Enrico vaz Jr, 12/17/2024 11:20:00 AM, [address], [address], [place], [address],
== END 2024-10-12 17:02 | disposition home or self-care (01) ==
PROVIDERS: PCP Internal Medicine; Visit Provider Internal Medicine
DX: E78.00 Pure hypercholesterolemia, unspecified (principal); H04.209 Unspecified epiphora, unspecified side

== ENCOUNTER → 2024-10-12 16:36 | Outpatient (BNVA) | payer OTHER, SELFPAY | PROVIDERS: PCP Internal Medicine; Visit Provider Internal Medicine | DX: E78.00 Pure hypercholesterolemia, unspecified (principal); H04.209 Unspecified epiphora, unspecified side; Z79.899 Other long term (current) drug therapy | CPT/HCPCS: 96127; 99212 ==

== ENCOUNTER 2025-01-11 08:55 | Day surgery (SDC) | payer OTHER, SELFPAY ==
[2025-01-09 12:22] VITALS: BMI 28.2
--- OUTSIDE RECORDS SUMMARY | 2025-01-10 15:02 | XMS_ITS ---
Author Organization [facility] Address [address] [place] [address] Care Team Providers Care Xray Tech Name Role Phone Marti Velez Primary Care Provider UnavailEnrico Khan Jr Unavailable Allergies No Known Allergies REASON FOR VISIT Patient presents today for a discuss colonoscopy Social History Tobacco Use: Social History Observation Description Date Details (start date - stop date) Never Smoker NA - NA Tobacco Control (Standard) Question Answer Notes Tobacco use: Nonsmoker AUDIT-C (Standard) Question Answer Notes Did you have a drink containing alcohol in the p ast year? No Points 0 Interpretation Negative Vital Signs Temperature 97.7 degrees Fahrenheit 12/18/19 25 Blood pressure systolic 001 mm Hg 12/18/19 25 Blood pressure diastolic 01 mm Hg 025 Height 60 in 12/17/2024 Weight 145.2 lbs 12/17/2024 BMI 28.35 kg/m2 12/17/2024 Encounters Encounter Location Date Provider Diagnosis [facility] [address] [place] [address] 12/17/2024 Enrico Adan Jr Colon cancer screening Z12.11 Assessments Encounter Date Diagnosis (ICD Code) Assessment Notes Treatment Notes Treatment Clinical Notes Section Notes 12/17/2024 Colon cancer screening (ICD-10 - Z12.11) We discussed colonoscopy today. We discussed risks and benefits of the procedure today. She understands these and agrees to proceed. This will be scheduled at her convenience. Plan Of Treatment Future Test Test Name Order Date COLONOSCOPY 12/17/2024 Next Appt Details Follow Up: prn, Reason: Provider Name:Enrico Emery vaz , 01/11/2025 10:50:00 AM, [address] , [place], [place], [phone], Progress Notes * TRAE RAYB:1950 (74 yo F)Acc No.[id number]:12/17/2024 Progress Notes Patient:?DESMOND RAY Provider:?Enrico Adan MD :1950???Age:74 Y???Sex:Female D ate:12/17/2024 Address:[address] [place] [address], [facility] Pcp:Marti Hernandez Subjective: * Chief Complaints: * ???1. Patient presents today for a discuss colonoscopy. * HPI: ???New symptom(s):? The patient is a pleasant 74-year-old woman seen today for preoperative colonoscopy visit. Prior colonoscopy in 2010 showed a hyperplastic polyp. She is due for follow-up. She has no complaints of rectal bleeding or change in her bowel habits. * ROS:?General/Constitutional:?Change in appetite?denies.?Fatigue?denies.?ENT:?Patient denies?difficulty swallowing.?Respiratory:?Patient denies?shortness of breath.?Cardiovascular:?Patient denies?chest pain.?Gastrointestinal:?Comments?See HPI for details.?Genitourinary:?Difficulty urinating?denies.?Incontinence?denies.?Musculoskeletal:?Patient denies?muscle aches.?Skin:?Patient denies?pruritis.?Neurologic:?Patient denies?low back pain.?Psychiatric:?Patient denies?mental or physical abuse.? * Medical History:?Hyperlipide delroy, Osteoarthritis. * Family History:?Father: dece ased.?Mother: .? No family history of colon cancer or liver cancer. * Social History:?Tobacco Use:?Tobacco Control (Standard)?Tobacco use:?Nonsmoker.?Drug/Alcohol:?AUDIT-C (Standard)?Did you have a drink containing alcohol in the past year??No,?Points?0,?Interpretation?Negative.? * Medications:?None * Allergies:?N.K.D.A. Objective: * Vitals:?Wt: 145.2 lbs, Ht: 6 0 in, BMI: 28.35 Index, BP: 001/01 mm Hg, Temp: 97.7, Ht-cm: 152.4, Wt-k.86. * Examination: ???General Examination: ?GENERAL APPEARANCE:?in no acute distress.?HEAD:?normocephalic.?EYES:?sclera non-icteric.?ORAL CAVITY:?mucosa moist.?NECK/THYROID:?no lymphadenopathy.?SKIN:?anicteric.?HEART:?S1, S2 normal, no murmurs.?LUNGS:?clear to auscultation bilaterally.?CHEST:?normal shape and expansion.?ABDOMEN:?soft, nontender, nondistended, bowel sounds present, no organomegaly .?EXTREMITIES:?no clubbing, cyanosis, or edema.?PSYCH:?cognitive function intact.? Assessment: * Assessment: 1.?Colon cancer screening - Z12.11 (Primary)??? We discussed colonoscopy tod ay. We discussed risks and benefits of the procedure today. She understands these and agrees to proceed. This will be scheduled at her convenience. Plan: * Treatment: * Preventive Medicine:? ??Counseling:?Care goal follow-up plan:?Above Normal BMI Follow-up?Dietary management education, guidance, and counseling,?BMI management provided?Yes.? ??Urinary Incontinence:?Urinary Incontinence?Assessment:?Absent,?Plan of care documented:?No, reason not specified.? ??Screenings:?Fall Risk Screening?Fall Risk Assessment:?No falls in the past year,?Screening:?No falls in the past year,?Assessment:?Not performed, no reason specified,?Plan of Care:?Not documented, no reason specified.? * Follow Up:?prn * * Sign off status: Completed true * Provider:?Enrico Adan MD Date:?0 12/17/2024 Generated for Purvi dexter/Liliya/Alexis on:?01/10/2025 03:02 PM EDT History and Physical Notes * HPI (History of Present Illness) Category Sub-Category Detail Notes Category Not es New symptom(s) The patient i s a pleasant 74-year-old woman seen today for preoperative colonoscopy visit. Prior colonoscopy in 2010 showed a hyperplastic polyp. She is due for follow-up. She has no complaints of rectal bleeding or change in her bowel habits. Examination Category Sub-Category Detail Notes Category Not es General Examination GENERAL APPEARANCE: in no acute di stress HEAD: normocephalic EYES: sclera non-icteric NECK/THYROID: no lymphadenopathy HEART: S1, S2 normal, no mu rmurs CHEST: normal shape and exp ansion LUNGS: clear to auscultatio n bilaterally ABDOMEN: soft, nontender, non distended, bowel sounds present, no organomegaly SKIN: anicteric EXTREMITIES: no clubbing, cyanosi s, or edema PSYCH: cognitive function i ntact ORAL CAVITY: mucosa moist
--- OUTSIDE RECORDS SUMMARY | 2025-01-10 15:02 | XMS_ITS | Patient Health Record ---
Author Organization [facility] Address [address] [place] [address] Care Team Providers Care Model Maker Apprentice Name Role Phone Marti Velez Primary Care Provider Enrico Bonilla Jr [phone] Allergies No Known Allergies Reason For Referral No Information Immunizations Vaccine Route Administration Date Status Comme nts Influenza Unknown 07/31/2024 Administered Influenza Unknown 07/31/2024 Administered Social History Tobacco Use: Social History Observation Description Date Details (start date - stop date) Never Smoker NA - NA Tobacco Control (Standard) Question Answer Notes Tobacco use: Nonsmoker AUDIT-C (Standard) Question Answer Notes Did you have a drink containing alcohol in the p ast year? No Points 0 Interpretation Negative Problems Problem Type SNOMED Code ICD Code Onset Dates Problem Status W/U Status Risk Notes Problem Screening for malignant neoplasm of colon (935305990) Special screening for malignant neoplasms, colon (V76.51) Active confirmed Vital Signs Temperature 97.7 degrees Fahrenheit 12/17/2024 Blood pressure diastolic 01 mm Hg 12/17/2024 Height 60 in 12/17/2024 Blood pressure systolic 001 mm Hg 12/17/2024 Weight 145.2 lbs 12/17/2024 BMI 28.35 kg/m2 12/17/2024 Encounters Encounter Location Date Provider Diagnosis [facility] [address] [place] [phone] 12/17/2024 Enrico Adan Jr Colon cancer screening Z12.11 [facility] [address] [place] [phone] 07/26/2024 Enrico Adan Jr [facility] [address] [place] [address] 10/12/2024 Enrico Adan Jr [facility] [address] [place] [address] 01/09/2025 Enrico Adan Jr Assessments Encounter Date Diagnosis (ICD Code) Assessment Notes Treatment Notes Treatment Clinical Notes Section Notes 12/17/2024 Colon cancer screening (ICD-10 - Z12.11) We discussed colonoscopy today. We discussed risks and benefits of the procedure today. She understands these and agrees to proceed. This will be scheduled at her convenience. Plan Of Treatment Pending Test Test Name Order Date COLONOSCOPY WITH BIOPSY 07/21/2011 Future Test Test Name Order Date COLONOSCOPY 12/17/2024 Next Appt Details Provider Name:Enrico vaz Jr, 01/11/2025 10:50:00 AM, [address] [place] [address] , [place], [place], [phone], Insurance Providers Payer Name Payer Address Payer Phone Subscriber Number Group Number Insured Name Patient Relationship to Insured Coverage Start Date Coverage End Date [facility] [address] [place] [phone] [id number] DESMOND RAY Self - patient is the insured Medical (General) History Medical History History ICD Code Hyperlipidemia Osteoarthritis
--- OUTSIDE RECORDS SUMMARY | 2025-01-10 15:02 | XMS_ITS ---
Author Organization [facility] Address [address] [place] [address] Care Team Providers Care Microbiology Lab Technician Name Role Phone Marti Velez Primary Care Provider Unavailab Enrico Dejesus Jr [phone] REASON FOR VISIT screening colonoscopy Encounters Encounter Location Date Provider Diagnosis [facility] [address] [facility] [address] [place] [phone] 11/01/2024 Enrico Adan Jr Plan Of Treatment Next Appt Details Provider Name:Enrico vaz Jr, 01/11/2025 10:50:00 AM, [address] [place] [address] , [place], [place], [phone], Progress Notes * LESLEY RAYDELMIADOB:1950 (74 yo F)Acc No.[id number]:11/01/2024 Progress Notes Patient:?RAYLESLEYDESMOND Provider:?Enrico Adan MD :1950???Age:73 Y???Sex:Female D ate:11/01/2024 [address] [id number] Pcp:Marti Hernandez Subjective: * Chief Complaints: * ???1. Screening colonoscopy. * Medical History:? Objective: * Vitals:? Assessment: Plan: * Treatment: * * The named appointment provid er may or may not be the originator of this progress note, and it is not deemed complete until electronically signed by the appointment provider. Sign off status: Pending * Provider:?Enrico Adan MD Date:?0 11/01/2024 Generated for Purvi dexter/Liliya/Alexis on:?01/10/2025 03:02 PM EDT
--- OUTSIDE RECORDS SUMMARY | 2025-01-10 15:03 | XMS_ITS ---
Author Organization [facility] Address [address] [place] [address] Care Team Providers Care Parachute Folder Name Role Phone Marti Velez Primary Care Provider Unavailab nErico Dejeuss Jr [phone] REASON FOR VISIT lock H & p Encounters Encounter Location Date Provider Diagnosis [facility] [address] [place] [phone] 01/09/2025 Enrico Adan Jr Plan Of Treatment Next Appt Details Provider Name:Enrico vaz Jr, 01/11/2025 10:50:00 AM, [address] [place] [address] , [place], [place], [phone], Progress Notes * TRAE RAYB:1950 (74 yo F)Acc No.[id number]:01/09/2025 Patient:?DESMOND RAY :1950???Age:74 Y???Sex:Female Address:[address] [place] [address] * true * Date:? Generated for Printi guerita/Liliya/eTransmitting on:?01/10/2025 03:02 PM EDT
[2025-01-11 08:59] VITALS: BP 128/76; PULSE 76; RESP 20; TEMP 36.9; O2SAT 97; BMI 27.6
--- NOTE | 2025-01-11 09:11 | HO.ANESPROP2 ---
[facility] Active Problems Active Problems: All Active Problems Eye tearing (Acute) Contact dermatitis due to plant (Acute) Screen for colon cancer (Acute) Allergic conjunctivitis (Acute) Pterygium (Acute) Conjunctivitis, left eye (Acute) Osteoarthritis of left knee (Acute) Trapezius strain (Acute) Blurry vision (Acute) Left knee pain (Acute) Physical exam (Acute) Viral upper respiratory tract infection (Acute) Cellulitis at injection site (Acute) Pure hypercholesterolemia (Acute) Past Medical History Medical History (Updated 01/09/25 @ 12:20 by Agnes Lemus RN) Osteoarthritis Pure hypercholesterolemia Family History Family History Father Diabetes Mother Alzheimers disease Maternal Aunt Breast cancer Brother Liver cancer Family history of problems with anesthesia: No Surgical History Surgical History (Updated 01/09/25 @ 12:22 by Agnes Lemus RN) H/O colonoscopy History of hysterectomy History of Problems with Anesthesia: No Social History Social History Housing: Apartment Alcohol intake: never Patient Tobacco Use Status: Never used Tobacco e-Cigarette/Vaping Use: Never Used Second Hand Smoke Exposure: No Have you been hit, kicked, punched, or otherwise hurt by someone within the past year? If so, by whom?: No Are you DNR?: No Advance Directives: No Advance Directives Information Provided: Yes service: No Current occupational status: unemployed Current occupation: left hand Cognitive needs: No Hearing needs: No Vision needs: No Meds Allergies Allergy/AdvReac Type Severity Reaction Status Date / Time No Known Allergies Allergy Verified 10/12/24 16:55 Active Medications: Current Medications Naloxone HCl (Naloxone Hcl 0.4 Mg/Ml Vial) 0.04 mg IVPUSH Q5M PRN PRN Reason: Excessive sedation or RR < 8 Exam Height,Weight and Vital Signs: Height 5 ft 1 in Weight 66.2 kg Last Vital Signs Temp 98.5 F 01/11/25 08:59 Pulse 76 01/11/25 08:59 Resp 20 01/11/25 08:59 BP 128/76 01/11/25 08:59 Pulse Ox 97 01/11/25 08:59 O2 Del Method Room Air 01/11/25 08:59 Airway Mallampati Class: II TM Dist: >3cm Neck ROM: Full Partial: Upper Heart: rrr Lungs: cta Assessment and Plan Assessment Anesthesia Assessment: Anesthesia Plan Discussed and Chart Reviewed Final Anesthetic Review Family History of Problems with Anesthesia: No History of Problems with Anesthesia: No NPO: Yes ASA Class: II Final Preanesthetic Review: No Changes in Pt Med Stat, Meds/Allgs Chart Reviewed and Consent Obtained/Reviewed Patient Risk: Low Procedure Risk: Low Anesthetic Plan Anesthetic Plan: MAC: Disposition: Standard PACU
[2025-01-11] MEDS: Lactated Ringers 1,000 ML 50 ML IVCONT (09:21)
--- NOTE | 2025-01-11 09:25 | MHC.SHP ---
Pre-Procedural Eval Section A - 24 Hr Update-Section A only Date of Service: 01/11/25 The patient is an INPATIENT: No Changes since office visit: No Cold of Flu in the past 2 weeks, No New Medical Problems, No Changes in Medication and No Patient answered all questions The patient has been examined within 24 hours of the surgical procedure. The History & Physical has been completed within 30 days and I have reviewed it.: Yes Section B - Complete if H&P > 30 days Chief Complaint: screening Allergies: Allergies Allergy/AdvReac Type Severity Reaction Status Date / Time No Known Allergies Allergy Verified 10/12/24 16:55 Plan I have reviewed the history and physical and performed a pertinent physical examination on my patient. No changes have occurred unless specified. Time Spent With Patient Time: Total time managing care of this patient today ____ minutes.
[2025-01-11 09:58] VITALS: BP 106/64; PULSE 70; RESP 14; TEMP 36.6; O2SAT 98
--- NOTE | 2025-01-11 09:59 | PM.OP ---
Brief Operative Note Date of Service: 01/11/25 Pre-op diagnosis: screening Post-op diagnosis: same Surgeon: Enrico Adan MD Anesthesia: MAC Was an Store Sales Consultant used for this Procedure?: No Estimated blood loss (mL): 0 Pathology: none sent Condition: stable Disposition: PACU
[2025-01-11 10:13] VITALS: BP 142/79; PULSE 65; RESP 16; TEMP 36.6; O2SAT 99
--- NOTE | 2025-01-11 10:38 | OP_ITS ---
DATE OF SERVICE: 01/11/2025 SURGEON: Enrico Adan MD INDICATIONS: Colon cancer screening. PREOPERATIVE DIAGNOSIS: POSTOPERATIVE DIAGNOSIS: PROCEDURE PERFORMED: Colonoscopy to the terminal ileum. ESTIMATED BLOOD LOSS: COMPLICATIONS: ANESTHESIA: Monitored anesthesia care. ASSISTANTS: SPECIMENS: DESCRIPTION OF PROCEDURE: History and physical performed. The risks and benefits of the procedure were explained to the patient. Informed consent was obtained. The patient was placed in the left lateral decubitus position. A digital rectal exam was performed and was found to be normal. The Olympus pediatric video colonoscope was introduced into the rectum and advanced to the cecum. The cecum was identified by transillumination, palpation, and identification of ileocecal valve. Examination was performed. The scope was removed. She tolerated the procedure well and was returned to recovery area in stable condition. FINDINGS: The terminal ileum was examined and appeared normal. The visualized colonic mucosa was normal. The quality of the prep was good. No polyps were identified. Retroflexed examination showed moderate-sized internal hemorrhoids. IMPRESSION: Normal colonoscopy. RECOMMENDATION: 1. Follow up as needed. 2. Repeat colonoscopy is recommended in 10 years for average-risk individuals. This is optional based on age. MD NIDIA Spear/THOM / [phone]
== END 2025-01-11 10:34 | disposition home or self-care (01) ==
PROVIDERS: PCP Internal Medicine; Visit Provider Internal Medicine Gastroenterology
PROC: 0DJD8ZZ Inspection of Lower Intestinal Tract, Via Natural or Artificial Opening Endoscopic (ICD-10-PCS; CPT 45378; principal; 2025-01-11 10:50)
DX: Z12.11 Encounter for screening for malignant neoplasm of colon (principal); K64.8 Other hemorrhoids; E78.5 Hyperlipidemia, unspecified; M19.90 Unspecified osteoarthritis, unspecified site; Z79.899 Other long term (current) drug therapy; Z90.710 Acquired absence of both cervix and uterus; Z56.0 Unemployment, unspecified
CPT/HCPCS: G0121; J2003; J2704

== ENCOUNTER 2025-02-05 08:49 | Outpatient (REF) | payer OTHER, SELFPAY | END 2025-02-05 08:50 | disposition home or self-care (01) | LOC: HO.MAMMO 08:49 | PROVIDERS: PCP Internal Medicine; Visit Provider Internal Medicine | DX: Z12.31 Encounter for screening mammogram for malignant neoplasm of breast (principal) | CPT/HCPCS: 77063; 77067 ==

== ENCOUNTER → 2025-02-05 09:15 | Outpatient (BNV) | payer OTHER, SELFPAY | PROVIDERS: PCP Internal Medicine; Visit Provider Internal Medicine | DX: Z12.31 Encounter for screening mammogram for malignant neoplasm of breast (principal) | CPT/HCPCS: 77063; 77067 ==

== ENCOUNTER 2025-05-03 07:40 | Outpatient (REF) | payer OTHER, SELFPAY ==
--- OUTSIDE RECORDS SUMMARY | 2025-05-03 07:42 | XMS_ITS | Patient Health Record ---
Author Organization [facility] Address [address] [place] [address] Care Team Providers Care Cert Pharmacy Tech Name Role Phone Marti Velez Primary Care Provider Enrico Bonilla Jr Unavailable [phone] Allergies No Known Allergies Reason For Referral [...] Problem Status W/U Status Risk Notes Problem Special screening for malignant neoplasms, colon (V76.51) Active confirmed Vital Signs Temperature 97.7 degrees Fahrenheit 12/17/2024 Blood pressure diastolic 01 mm Hg 12/17/2024 Height 60 in 12/17/2024 Blood pressure systolic 001 mm Hg 12/17/2024 Weight 145.2 lbs 12/17/2024 BMI 28.35 kg/m2 12/17/2024 Encounters Encounter Location Date Provider Diagnosis [facility] Outpatient [address] [place], [place] [phone] 01/11/2025 Enrico Adan Jr Colon cancer screening Z12.11 [facility] [address] [place] [phone] 12/17/2024 Enrico Adan Jr Colon cancer screening Z12.11 [facility] [address] [place] [phone] 07/26/2024 Enrico Adan Jr [facility] [address] [place] [address] 10/12/2024 Enricowatson Adan Jr [facility] [address] [place] [address] 01/09/2025 Enrico Adan Jr Assessments Encounter Date Diagnosis (ICD Code) Assessment Notes Treatment Notes Treatment Clinical Notes Section Notes 01/11/2025 Colon cancer screening (ICD-10 - Z12.11) 12/17/2024 Colon cancer screening (ICD-10 - Z12.11) We discussed colonoscopy today. We discussed risks and benefits of the procedure today. She understands these and agrees to proceed. This will be scheduled at her convenience. Plan Of Treatment Pending Test Test Name Order Date COLONOSCOPY WITH BIOPSY 07/21/2011 Future Test Test Name Order Date COLONOSCOPY 12/17/2024 Insurance Providers Payer Name Payer Address Payer Phone Subscriber Number Group Number Insured Name Patient Relationship to Insured Coverage Start Date Coverage End Date [facility] [address] Attn [place] [id number] DESMOND RAY Self - patient is the insured Medical (General) History Medical History History ICD Code Hyperlipidemia Osteoarthritis
[2025-05-03 09:07] LABS: Alanine Aminotransferase 13 U/L (0-31); Albumin Level 4.1 g/dL (3.5-5.0); Alkaline Phosphatase 69 U/L (39-117); Anion Gap 11 (12-20); Aspartate Amino Transferase 21 U/L (5-31); Blood Urea Nitrogen 14 mg/dL (9-16); Calcium 9.6 mg/dL (8.4-10.2); Carbon Dioxide 24 mmol/L (22-29); Chloride 112 mmol/L (96-108); Cholesterol 128 mg/dL (<200); Estimated Glomerular Filt Rate > 60; HDL Cholesterol 48 mg/dL (>40); Potassium 4.3 mmol/L (3.3-5.1); Sodium 143 mmol/L (135-145); Total Protein 7.2 g/dL (6.5-8.0); Triglycerides 81 mg/dL (<150)
== END 2025-05-03 07:41 | disposition home or self-care (01) ==
LOC: HO.LAB 07:40
PROVIDERS: PCP Internal Medicine; Visit Provider Internal Medicine
DX: Z00.00 Encounter for general adult medical examination without abnormal findings (principal); E78.00 Pure hypercholesterolemia, unspecified
CPT/HCPCS: 36415; 80053; 80061

== ENCOUNTER 2025-05-08 15:35 | Outpatient (AMB) | payer OTHER, SELFPAY ==
--- NOTE | 2025-05-08 15:38 | MHC.PC.OV ---
Vital Signs 05/08/25 15:39 Height 5 ft 1 in Weight 144 lb BMI 27.2 BP 116/70 Blood Pressure Location Lt brachial Position Sitting Intake Visit Reasons: PE Intake Note: Patient here for a physical exam Roll Panner Required: No Accompanied by: Self / Same As Patient Allergies No Known Allergies Allergy (Verified 05/08/25 15:46) Medication List - Last Reconciled 05/08/25 by Marti Hernandez MD rosuvastatin 10 mg PO DAILY 90 days Tobacco use date assessed: 10/12/24 Dental Screening Dental Screen Date: 10/12/24 HPI HPI Comments History of Present Illness Details The patient is a 74-year-old female presenting for an annual physical examination. She has a history of hyperlipidemia, which has shown significant improvement with her current medication regimen, rosuvastatin 10 mg taken nightly. Her cholesterol levels have decreased from 223 mg/dL to 128 mg/dL, with an LDL of 64 mg/dL and HDL of 48 mg/dL. The patient has a history of anemia following a hysterectomy performed due to excessive bleeding, not related to cancer. She reports no current symptoms of anemia. She has no known allergies to medications and denies any history of smoking or alcohol use. Her family history is significant for diabetes in her father and Alzheimer's disease in her mother. [facility] Medical History Osteoarthritis Pure hypercholesterolemia Surgical History H/O colonoscopy History of hysterectomy Family History Father Diabetes Mother Alzheimers disease Maternal Aunt Breast cancer Brother Liver cancer Social History Housing: Apartment Alcohol intake: never Patient Tobacco Use Status: Never used Tobacco e-Cigarette/Vaping Use: Never Used Second Hand Smoke Exposure: No service: No Current occupational status: unemployed Current occupation: left hand Cognitive needs: No Hearing needs: No Vision needs: No Questionnaire PHQ-9 Over the last 2 weeks, how often have you been bothered by any of the following problems? 1. Little interest or pleasure in doing things: not at all 2. Feeling down, depressed, or hopeless: not at all 3. Trouble falling or staying asleep, or sleeping too much: not at all 4. Feeling tired or having little energy: not at all 5. Poor appetite or overeating: not at all 6. Feeling bad about yourself - or that you are a failure or have let yourself or your family down: not at all 7. Trouble concentrating on things, such as reading the newspaper or watching television: not at all 8. Moving or speaking so slowly that other people could have noticed. Or the opposite - being so fidgety or restless that you have been moving around a lot more than usual: not at all 9. Thoughts that you would be better off or of hurting yourself in some way: not at all Total score: 0 Depression Screening Interpretation: Negative Depression Screening Done: Yes 73830 - PHQ-9 Billing: Yes Source: Developed by Drs. Brice Thakkar, Jayshree Manuel, Hema Greenberg and colleagues, with an educational dexter from [employer]. Thrive Questionnaire Date Thrive assessed: 05/08/25 I am a: Patient What is your living situation today?: I choose not to answer this question Within the past 12 months, did the food you bought not last and you didn't have the money to get more?: Never true Within the past 12 months, did you worry whether your food would run out before you got money to buy more?: Never true Do you have trouble paying for medicines?: No Do you have trouble getting transportation to medical appointments?: No Do you have trouble paying your heating and electricity bill?: No Do you have trouble taking care of your child, family member or friend?: No Do you have trouble with day-to-day activities such as bathing, preparing meals, shopping, managing finances, etc.?: No Are you currently unemployed and looking for a job?: No Are you interested in more education?: No Please select the resources that you would like help with: None Currently or been in a relationship where the following occur: I choose not to answer THRIVE Score: 0 AUDIT C Alcohol Use Questionnaire (AUDIT-C) 1. How often do you have a drink containing alcohol?: Never Total Score: 0 Score Reviewed/Action Taken: No EVERETTE-7 AMB Questionnaire EVERETTE-7 Date EVERETTE - 7 assessed: 05/08/25 Feeling nervous, anxious, or on edge: 0 = Not at all Not being able to stop or control worryin = Not at all Worrying too much about different things: 0 = Not at all Trouble relaxin = Not at all Being so restless that it is hard to sit still: 1 = Several days Becoming easily annoyed or irritable: 1 = Several days Feeling afraid as if something awful might happen: 1 = Several days Total EVERETTE-7 score (0-4 normal; 5-9 mild; 10-14 moderate; 15-21 severe): 3 Source: Developed by Drs. Brice Thakkar, Jayshree Manuel, Hema Greenberg and colleagues, with an educational dexter from [employer]. EVERETTE-7 Assessment Billing EVERETTE-7 Assessment Tool: EVERETTE-7 Assessment 90016 Review of Systems Const All systems reviewed & are unremarkable except as noted in HPI and below Card Denies chest pain at rest, Denies chest pain with activity, Denies edema, Denies irregular heart rhythm, Denies claudication, Denies dyspnea, Denies dyspnea on exertion, Denies orthopnea, Denies paroxysmal nocturnal dyspnea and Denies slow heart rate Resp Denies cough, Denies dyspnea and Denies dyspnea on exertion GI Denies abdominal pain, Denies change in bowel habits, Denies excessive flatus, Denies nausea and Denies vomiting Physical exam (Primary Care) Vital Signs: Last Vital Signs BP 116/70 05/08/25 15:39 BMI result Body Mass Index 27.2 Tobacco/Smoking Status: Tobacco use Status Tobacco use date assessed 10/12/24 05/08/25 15:43 Patient Tobacco Use Status Never used Tobacco 05/08/25 15:43 e-Cigarette/Vaping Use Never Used 05/08/25 15:43 PHQ-9: PHQ-9 Score PHQ-9: Total score 0 05/08/25 15:43 Depression Screening Interpretation: Negative Thrive Assessment: Date of Thrive Assessment Date Thrive assessed 05/08/25 05/08/25 15:43 Currently or been in a relationship where the following occur: I choose not to answer HENIL Head: Yes normal to inspection, Yes normocephalic and Yes atraumatic Ears: external ears normal Eyes General: appearance normal, both eyes and all related structures Eyelids: Yes eyelids normal Conjunctivae: conjunctivae normal Neck Neck: Yes normal visual inspection and Yes supple Resp Effort & Inspection: normal respiratory effort Auscultation: clear to auscultation bilaterally Cardio Jugular venous distension: no JVD Rate: regular rate Rhythm: regular rhythm Heart sounds: S1 normal heart sound present and S2 normal heart sound present GI Inspection: Yes normal to inspection Palpation (GI): Soft to palpation and nontender Auscultation: normal bowel sounds Skin General skin exam: no rashes or lesions noted Neuro General: no focal motor deficits Extrem General: Yes full ROM Psych Appearance: grossly normal Coding Level of Care Code Est Pt Prev Care >65y(53776) Diagnoses Physical exam Z00.00 Additional Codes PHQ-9 - 78006 - PHQ-9 Billing: Yes ([id number]) EVERETTE-7 Assessment Billing - EVERETTE-7 Assessment Tool: EVERETTE-7 Assessment 48375 ([id number]) Time Spent (min) 30 Assessment & Plan Assessment & Plan (1) Physical exam: Code(s): Z00.00 - Encounter for general adult medical examination without abnormal findings Category: Medical Plan The patient will continue her current medication regimen of rosuvastatin 10 mg nightly to manage hyperlipidemia, given the significant improvement in her cholesterol levels. A bone densitometry test is recommended to assess for osteoporosis, as this screening is overdue. Preventative care measures such as maintaining up-to-date vaccinations and regular screenings, including mammograms and colonoscopies, are emphasized. Patient was informed and verbally consented to the use of an ambient scribe for clinic note documentation during this visit. Orders: Orders XR DEXA axial skeleton Today Z78.0 - Asymptomatic menopausal state
[2025-05-08 15:39] VITALS: BP 116/70; BMI 27.2
--- OUTSIDE RECORDS SUMMARY | 2025-05-08 16:14 | XMS_ITS | Patient Health Record ---
Author Organization [facility] Address [address] [place] [address] Care Team Providers Care Creative Services Writer Name Role Phone Marti Velez Primary Care Provider Enrico Bonilla Jr Unavailable Allergies No Known Allergies Reason For Referral [...] 12/17/2024 Encounters Encounter Location Date Provider Diagnosis [facility] Outpatient [address] [place], [place] [phone] 01/11/2025 Enrico Adan Jr Colon cancer screening Z12.11 [facility] [address] [place] [phone] 12/17/2024 Enrico Adan Jr Colon cancer screening Z12.11 [facility] [address] [place] [phone] 07/26/2024 nErico Adan Jr [facility] [address] [place] [address] 10/12/2024 Enricowatson Adan Jr [facility] [address] [place] [address] 01/09/2025 Enrico Adan Jr Assessments Encounter Date [...] Insured Coverage Start Date Coverage End Date [facility] [address] Attn [place] [id number] DESMOND RAY Self - patient is the insured Medical (General) History Medical History History ICD Code Hyperlipidemia Osteoarthritis
== END 2025-05-08 15:57 | disposition home or self-care (01) ==
LOC: HO.HMCH 15:36
PROVIDERS: PCP Internal Medicine; Visit Provider Internal Medicine
DX: Z00.00 Encounter for general adult medical examination without abnormal findings (principal)

== ENCOUNTER → 2025-05-08 15:35 | Outpatient (BNVA) | payer OTHER, SELFPAY | PROVIDERS: PCP Internal Medicine; Visit Provider Internal Medicine | DX: Z00.00 Encounter for general adult medical examination without abnormal findings (principal); E78.5 Hyperlipidemia, unspecified; Z78.0 Asymptomatic menopausal state; Z79.899 Other long term (current) drug therapy | CPT/HCPCS: 96127; 99397 ==

== ENCOUNTER 2025-05-13 12:36 | Outpatient (REF) | payer OTHER, SELFPAY ==
--- NOTE | ~2025-05-13 | MM_ITS ---
EXAMINATION: DXA BONE DENSITY AXIAL HISTORY: Z78.0 - Asymptomatic menopausal state TECHNIQUE: Sopogy Dual energy absorptiometry (DEXA) of the lumbar spine, total left hip, and femoral neck was performed. COMPARISON: Comparison is made with the prior examination dated 08/26/2005. FINDINGS: The bone mineral density of the lumbar spine is 0.818 g/cm2, corresponding to a T-score of -3.0, and a Z-score of -1.4. This is indicative of osteoporosis. This represents a BMD change of -26.6% compared to the prior exam. This is statistically significant. The bone mineral density of the left total hip is 0.862 g/cm2, corresponding to a T-score of -1.2, and a Z-score of 0.5. This is indicative of osteopenia. This represents a BMD change of -10.7% compared to the prior exam. This is statistically significant. The bone mineral density of the left femoral neck is 0.815 g/cm2, corresponding to a T-score of -1.6, and a Z-score of 0.2. This is indicative of osteopenia. This represents a BMD change of -14.2% compared to the prior exam. MM/XR DEXA axial skeleton IMPRESSION: Based on bone mineral density, and according to World Health Organization (WHO) criteria, the diagnosis is consistent with osteoporosis. Statistically, 68% of repeat scans fall within 1 SD (+/- 0.010 g/cm2 for AP spine L1-L4) and 1 SD (+/- 0.012 g/cm2 for femur total) FRAX is a trademark of the [employer] [place] [employer] Metabolic [employer] Disease, a World Health Organization (WHO) Collaborating Center. Electronically signed by: Brice German MD 05/13/2025 02:00 PM EDT
--- OUTSIDE RECORDS SUMMARY | 2025-05-13 13:02 | XMS_ITS | Patient Health Record ---
Author Organization [facility] Address [address] [place] [address] Care Team Providers Care Wall To Wall Carpet Installer Name Role Phone Marti Velez Primary Care [...] 12/17/2024 Encounters Encounter Location Date Provider Diagnosis [facility] Out[place] [address] [place], [place] [phone] 01/11/2025 Enrico Adan Jr Colon cancer screening Z12.11 [facility] [address] [place] [phone] 12/17/2024 Enrico Adan Jr Colon cancer screening Z12.11 [facility] [address] [place] [phone] 07/26/2024 Enrico Adan Jr [facility] [address] [place] [address] 10/12/2024 Enricowatson Adan Jr [facility] [address] [place] [address] 01/09/2025 Enrico Adan Jr Assessments Encounter Date [...] Insured Coverage Start Date Coverage End Date [facility] [address] Attn [place] [id number] DESMOND RAY Self - patient is the insured Medical (General) History Medical History History ICD Code Hyperlipidemia Osteoarthritis
== END 2025-05-13 12:37 | disposition home or self-care (01) ==
LOC: HO.MAMMO 12:36
PROVIDERS: Visit Provider Internal Medicine
DX: Z78.0 Asymptomatic menopausal state (principal)
CPT/HCPCS: 77080

== ENCOUNTER → 2025-05-13 13:00 | Outpatient (BNV) | payer OTHER, SELFPAY | PROVIDERS: Visit Provider Radiology Diagnostic Radiology | DX: E28.39 Other primary ovarian failure (principal) | CPT/HCPCS: 77080 ==

== ENCOUNTER 2025-06-24 14:25 | Outpatient (AMB) | payer OTHER, SELFPAY ==
--- OUTSIDE RECORDS SUMMARY | 2024-07-26 11:15 | XMS_ITS ---
Author Organization [facility] Address [address] [place] [id number] Care Team Providers Care Lens Hardener Name Role Phone Marti Velez Primary Care Provider Enrico Bonilla Jr REASON FOR VISIT Patient presents today for a COLON SCREENING Encounters Encounter Location Date Provider Diagnosis [facility] [address] [place] [id number] 07/26/2024 Enrico Adan Jr Plan Of Treatment No Information Progress Notes * TAYLER RAYJOHNB:1950 (74 yo F)Acc No.[id number]:07/26/2024 Progress Notes Patient: DESMOND HEAD Provider: Main Adan MD :1950 A ge:73 Y S ex:Female Date:07/26/2024 Address[id number] Pcp:Marti Hernandez Subjective: * Chief Complaints: * 1 . Patient presents today for a COLON SCREENING. * Medical History: Objective: * Vitals: Assessment: Plan: * Treatment: * * The named appointment provid er may or may not be the originator of this progress note, and it is not deemed complete until electronically signed by the appointment provider. Sign off status: Pending * Provider: Main Adan MD Date: 1 Generated for Purvi dexter/Liliya/eTransmitting on: 0 06/24/2025 07:53 PM EDT
--- OUTSIDE RECORDS SUMMARY | 2024-11-01 11:55 | XMS_ITS ---
Author Organization [facility] Address [address] [place] [address] Care Team Providers Care Car Trimmer Name Role Phone Marti Velez Primary Care Provider Unavailab Enrico Dejesus Jr [phone] REASON FOR VISIT screening colonoscopy Encounters Encounter Location Date Provider Diagnosis [facility] [address] [place] [phone] 11/01/2024 Enrico Adan Jr Plan Of Treatment No Information Progress Notes * TAYLER RAYADOB:1950 (74 yo F)Acc No.[id number]:11/01/2024 Progress Notes Patient: DESMOND HEAD Provider: Main Adan MD :1950 A ge:73 Y S ex:Female Date:11/01/2024 [address] [facility] Pcp:Marti Hernandez Subjective: * Chief Complaints: * 1 . Screening colonoscopy. * Medical History: Objective: * Vitals: Assessment: Plan: * Treatment: * * The named appointment provid er may or may not be the originator of this progress note, and it is not deemed complete until electronically signed by the appointment provider. Sign off status: Pending * Provider: Main Adan MD Date: 0 11/01/2024 Generated for Printi ng/Faangelg/eTransmitting on: 0 06/24/2025 07:54 PM EDT
--- OUTSIDE RECORDS SUMMARY | 2025-01-11 06:50 | XMS_ITS ---
Author Organization [facility] Address [address] [place] [phone] Care Team Providers Care Display Manager Name Role Phone Marti Velez Primary Care Provider UnavailEnrico Khan Jr REASON FOR VISIT SCREENING Encounters Encounter Location Date Provider Diagnosis [facility] Out[place] [address] [place], [place] [phone] 01/11/2025 Enrico Adan Jr Colon cancer screening Z12.11 Assessments Encounter Date Diagnosis (ICD Code) Assessment Notes Treatment Notes Treatment Clinical Notes Section Notes 01/11/2025 Colon cancer screening (ICD-10 - Z12.11) Plan Of Treatment No Information Progress Notes * TRAE RAYB:1950 (74 yo F)Acc No.[id number]:01/11/2025 COLON WITH MAC Patient: DESMOND HEAD Provider: Main Adan MD :1950 A ge:74 Y S ex:Female Date:01/11/2025 Address:[address] [facility] [facility] Pcp:Marti Hernandez Subjective: * Chief Complaints: * 1 . SCREENING. * Medical History: Objective: * Vitals: Assessment: * Assessment: 1. C olon cancer screening - Z12.11 (Primary) Plan: * Treatment: * Procedure Codes: 4 5378 DIAGNOSTIC COLONOSCOPY, 0529F INTRVL 3+YRS PTS CLNSCP DOCD, 0528F RCMND FLW-UP 10 YRS DOCD * * The named appointment provid er may or may not be the originator of this progress note, and it is not deemed complete until electronically signed by the appointment provider. Sign off status: Pending * Provider: Main Adan MD Date: 0 01/11/2025 Generated for Purvi dexter/Liliya/Alexis on: 0 06/24/2025 07:54 PM EDT
--- NOTE | 2025-06-24 14:41 | MHC.OFFVIS ---
Vital Signs 06/24/25 14:45 Height 5 ft Weight 143 lb 11.862 oz BMI 28.1 BP 128/60 Blood Pressure Location Rt brachial Position Sitting Pulse 67 Pulse Source Pulse Oximeter Pulse Oximetry (%) 95 Oxygen Delivery Method Room Air Intake Visit Reasons: TE[employer] WAST[employer]POS[employer]AKAGE Age-related Osteoporosis Intake Note: New patient internally referred by PCP for Age-related Osteoporosis, last DEXA was on 05/13/2025 at [facility]. 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 First diagnosed in 2 wks ago .Never saw specialist before No Received treatment in the past No history of pathologic fracture or ONJ. Has several servings of dietary calcium per day in the form of broccoli, cheese, milk Not . Takes Calcium supplement Not Takes IU of Vitamin D daily. Denies ever using PPI, anticoagulant, antiepileptic or glucocorticoid medication. 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 Not UTD on dental cleanings and sees dentist every 6 months. Has planned upcoming dental work or extractions. No tobacco use or heavy ETOH use DXA dated 05/13/2025: FINDINGS: The bone mineral density of the lumbar spine is 0.818 g/cm2, corresponding to a T-score of -3.0, and a Z-score of -1.4. This is indicative of osteoporosis. This represents a BMD change of -26.6% compared to the prior exam. This is statistically significant. The bone mineral density of the left total hip is 0.862 g/cm2, corresponding to a T-score of -1.2, and a Z-score of 0.5. This is indicative of osteopenia. This represents a BMD change of -10.7% compared to the prior exam. This is statistically significant. The bone mineral density of the left femoral neck is 0.815 g/cm2, corresponding to a T-score of -1.6, and a Z-score of 0.2. This is indicative of osteopenia. This represents a BMD change of -14.2% compared to the prior exam. MM/XR DEXA axial skeleton IMPRESSION: Based on bone mineral density, and according to World Health Organization (WHO) criteria, the diagnosis is consistent with Labs: [facility] Medical History Osteoarthritis Pure hypercholesterolemia Surgical History H/O colonoscopy History of hysterectomy Family History Father Diabetes Mother Alzheimers disease Maternal Aunt Breast cancer Brother Liver cancer Social History Housing: Apartment Alcohol intake: never Patient Tobacco Use Status: Never used Tobacco e-Cigarette/Vaping Use: Never Used Second Hand Smoke Exposure: No service: No Current occupational status: unemployed Current occupation: left hand Cognitive needs: No Hearing needs: No Vision needs: No Physical Exam Vital Signs: Last Vital Signs Pulse 67 06/24/25 14:45 BP 128/60 06/24/25 14:45 Pulse Ox 95 06/24/25 14:45 Oxygen Delivery Method Room Air 06/24/25 14:45 BMI result Body Mass Index 28.1 There are no Cushingoid features. Absence of blue sclera. Absence of kyphosis. Thyroid gland is of nl size and weighs 15 gms. There are no thyroid nodules palpated. Lungs CTA. Heart S1 S2 Reg R/R Abdominal exam benign. Muscle strength 5/5 . Examination of spine reveals absence of tenderness on palpation Assessment & Plan Assessment & Plan (1) Osteoporosis: Code(s): M81.0 - Age-related osteoporosis without current pathological fracture Category: Medical Plan: This is a 74-year-old female with a history of osteoporosis. Rule out secondary causes Plan is to check a twenty-five hydroxy vitamin-D, phosphorus level, TSH, free T4, urine immunofixation, 24 hour urine for calcium and creatinine. Will ensure 1200 mg of calcium and 2000 IU of vitamin D3. Assuming secondary workup was negative we will consider initial use of anabolic agent considering very low bone density and high risk of fracture proceeded by anti resorptive agent Orders: Orders Vitamin D 25-OH Total Today M81.0 - Age-related osteoporosis without current pathological fracture Calcium, 24 Hr Ur Today M81.0 - Age-related osteoporosis without current pathological fracture Free T4 (Free Thyroxine) Today M81.0 - Age-related osteoporosis without current pathological fracture Immunofixation, Random Urine Today M81.0 - Age-related osteoporosis without current pathological fracture Creatinine, 24 Hr Group Today M81.0 - Age-related osteoporosis without current pathological fracture Thyroid Stimulating Hormone Today M81.0 - Age-related osteoporosis without current pathological fracture Phosphorus Today M81.0 - Age-related osteoporosis without current pathological fracture Medications: New cholecalciferol (vitamin D3) 50 mcg PO DAILY 30 caps 4RF Coding Level of Care Code New Pt Level 4 (31711) Diagnoses Osteoporosis M81.0
[2025-06-24 14:45] VITALS: BP 128/60; PULSE 67; O2SAT 95; BMI 28.1
--- OUTSIDE RECORDS SUMMARY | 2025-06-24 19:54 | XMS_ITS | Patient Health Record ---
Author Organization [facility] Address [address] [place] [phone] Care Team Providers Care Carburizer Name Role Phone Marti Velez Primary Care Provider Enrico Bonilla Jr Unavailable [phone] Allergies No Known Allergies Reason For Referral [...] Problem Screening for malignant neoplasm of colon (528148623) Special screening for malignant neoplasms, colon (V76.51) Active confirmed Vital Signs Temperature 97.7 degrees Fahrenheit 12/17/2024 Blood pressure diastolic 01 mm Hg 12/17/2024 Height 60 in 12/17/2024 Blood pressure systolic 001 mm Hg 12/17/2024 Weight 145.2 lbs 12/17/2024 BMI 28.35 kg/m2 12/17/2024 Encounters Encounter Location Date Provider Diagnosis [facility] [address] [address] [place], [place] [id number] 01/11/2025 Enrico Adan Jr Colon cancer screening Z12.11 [facility] [address] [place] [phone] 12/17/2024 Enrico Adan Jr Colon cancer screening Z12.11 [facility] [address] [place] [phone] 07/26/2024 Enrico Adan Jr [facility] [address] [place] [phone] 10/12/2024 Enrico Adan Jr [facility] [address] [place] [phone] 01/09/2025 Enrico Adan Jr Assessments Encounter Date [...] Start Date Coverage End Date [facility] [address] Attn Claims [place] [id number] DESMOND RAY Self - patient is the insured Medical (General) History Medical History History ICD Code Hyperlipidemia Osteoarthritis
== END 2025-06-24 15:51 | disposition home or self-care (01) ==
LOC: HO.ENCR 14:26
PROVIDERS: Visit Provider Internal Medicine Endocrinology, Diabetes & Metabolism
DX: M81.0 Age-related osteoporosis without current pathological fracture (principal)
CPT/HCPCS: 99204

== ENCOUNTER → 2025-06-24 14:25 | Outpatient (BNVA) | payer OTHER, SELFPAY | PROVIDERS: Visit Provider Internal Medicine Endocrinology, Diabetes & Metabolism | DX: M81.0 Age-related osteoporosis without current pathological fracture (principal) | CPT/HCPCS: 99202 ==